=== PATIENT | female | born 2005 | race Caucasian/White ===

== ENCOUNTER 2023-01-25 06:00 | Day surgery (SDC) | payer BC, SELFPAY ==
[2023-01-18 13:25] LABS: Hematocrit 37.9 % (37-47); Hemoglobin 12.5 g/dL (12.0-15.0); Mean Corpuscular Hgb 33.2 pg (27.0-32.0); Mean Corpuscular Volume 100.8 fL (81-99); Platelet Count 255 K/mm3 (150-450); RBC Distribution Width CV 11.8 % (11.6-14.6); RBC Distribution Width SD 42.6 fl (35.1-43.9); Red Blood Count 3.76 M/mm3 (4.2-5.4); White Blood Count 3.7 K/mm3 (4.4-11.0)
[2023-01-25] VITALS (10 sets, daily range): BP systolic 82–119; BP diastolic 54–75; PULSE 65–91; RESP 12–18; TEMP 36.1–36.9; O2SAT 100; BMI 18.6
[2023-01-25] MEDS: Lactated Ringers 1,000 ML 15 ML IV (06:35)
[2023-01-25 06:46] LABS: Internal QC Validated? YES +Cl - CLEAR BKGD; Pregnancy, Urine Negative Negative
--- NOTE | 2023-01-25 07:08 | HP.PCM.OB_ITS ---
History and Physical Date of Admission: 01/25/23 HPI: 17-year-old female with imperforate hymen plan for exam under anesthesia, hymenectomy. Denies headache or vision changes, chest pain or shortness of breath, nausea or vomiting, diarrhea or constipation, fevers or chills. [employer] history: G0 Medical history: 1. History of anorexia nervosa 2. Anxiety Surgical history: 1. History of cardiac ablation for SVT in 2017 Medications: 1. Desvenlafaxine Allergies: Azithromycin Family history: Noncontributory no history of anesthesia issues Social history: Denies tobacco, alcohol, drug use Review of system: Negative otherwise stated above Physical exam: Blood pressure 119/67, heart rate 80, respiratory rate 18, temp 98.4 ?F, oxygen saturation 100% on room air General: No acute distress HEENT: Normal cephalic/atraumatic, PERRLA Cardiac: Regular rate and rhythm no murmurs rubs or gallops Respiratory: Clear to auscultation bilaterally Abdomen: Soft, nontender, nondistended Extremities: No edema Neurologic: Cranial nerves II through XII grossly intact, no focal deficits Musculoskeletal: Strength 5 out of 5 throughout all extremities Assessment/plan: 17-year-old female with imperforate hymen plan for exam under anesthesia, hymenectomy. All risk, benefits, alternatives were discussed with the patient. Risks include, but not limited to: Risk of bleeding to the point of transfusion, infection, injury to surrounding tissue including bowel/bladder/vagina, VTE, ICU admission. Patient aware and consented.
--- NOTE | 2023-01-25 07:12 | PCM.OPRPT ---
Report of Operation Date of Procedure: 01/25/23 Pre-Operative Diagnosis: Imperforate Hymen Post-Operative Diagnosis: Excess hymenal tissue Surgery/Procedure Performed:: Exam under anesthesia, Excision of hymenal remnant Description of Surgical Findings:: Normal-appearing external genitalia. 1 skin tag and mole left groin and perineal area. Large amount of hymenal tissue from the 11:00 to 6 o'clock position. Introitus approximately 1 cm in caliber. Type of Anesthesia: MAC Specimen's removed: Hymenal tissue Estimated Blood Loss (mL): 5 cc Fluids Replaced: 700 cc Description of Procedure: Indications/Risks/Benefits: 17-year-old female with imperforate hymen plan for exam under anesthesia, hymenectomy. All risk, benefits, alternatives were discussed with the patient. Risks include, but not limited to: Risk of bleeding to the point of transfusion, infection, injury to surrounding tissue including bowel/bladder/vagina, VTE, ICU admission. Patient aware and consented. Procedure: Patient taken to the operating room and placed under MAC anesthesia. Patient placed in the dorsal lithotomy position and prepped and draped in the usual sterile fashion. Findings noted as above. Red rubber catheter placed into the urethra. Excess hymenal tissue grasped with Allis clamp and excised using Metzenbaum scissors. Excision of tissue was far from urethral meatus. Vaginal tissue reapproximated using running stitch with 3-0 Vicryl. Red rubber remained in place during closure. Vaginal tissue hemostatic. UOP: 100cc clear urine Complications None
[2023-01-25] MEDS: Cefazolin 2 GM in 0.9% Normal Saline 100 ML IV (07:24)
--- NOTE | 2023-01-25 08:18 | DCINST_ITS ---
Discharge Instructions Diet Discharge Diet: No restrictions Activity Discharge Activity: Return to Normal Activity and May Shower May resume sexual activity in: 2 weeks Weight Bearing Status: Weight bearing as tolerated Lifting Restrictions: None Dressing / Incision Call your doctor if your incision/area has: Continuous Slow Oozing, Increased Pain/ Swelling, Increased Redness and Foul Smelling Discharge Call your doctor if you observe: Fever of 101 or Higher, Change in Color, Inability to urinate, Using more than 1 pad per hour, Shortness of breath, Dizziness, Swelling in the ankles, Chest pain and Calf discomfort Cleanse incision/area with: Soap & Water Follow Up Care Please Follow Up With: Marcelina Hubbard DO When: 1-2 week postoperative visit Test Results: Test results from this visit will be discussed in further detail at your follow- up appointment, if applicable. Discharge Plan Admission Primary Reason for Your Visit: Excision of hymenal remnant. Attending Provider: Marcelina Hubbard Primary Care Provider: Arnav Bolaños Discharge Orders/Prescriptions Prescriptions: No Action desvenlafaxine succinate [Pristiq] 25 mg Tablet Extended Release 24 Hr 25 mg PO QHS Referrals / Follow Up: Arnav Bolaños MD [Primary Care Provider] - Disposition Discharge Orders: Discharge Patient (Routine); Ordered 01/25/23 Ordered By: Dr. Marcelina Hubbard
== END 2023-01-25 10:43 | disposition home or self-care (01) ==
LOC: SDC 06:01 → AC 06:03
PROVIDERS: Anesthesiology; PCP Family Medicine; Referring Provider Student in an Organized Health Care Education/Training Program; Visit Provider Student in an Organized Health Care Education/Training Program
PROC: (CPT 56700; principal; 2023-01-25 07:20)
PROC: (CPT 57410; 2023-01-25 07:20)
DX: Q52.3 Imperforate hymen (principal)
CPT/HCPCS: 56700; 00940; 36415; 81025; 85027; 86850; 86900; 86901; J7120; J2405

== ENCOUNTER → 2023-05-25 | Outpatient (CLI) | payer BC, SELFPAY ==
[2023-05-25 18:46] LABS: Hepatitis B Surface Antibody Non-Reactive
== END | disposition home or self-care (01) ==
LOC: MFPLAB 16:04
PROVIDERS: PCP Family Medicine; Visit Provider Family Medicine
DX: Z00.00 Encounter for general adult medical examination without abnormal findings (principal)
CPT/HCPCS: 36415; 86706

== ENCOUNTER → 2025-10-09 | Outpatient (CLI) | payer BC, SELFPAY ==
[2025-10-09 17:41] LABS: Hematocrit 22.9 % (37-47); Hemoglobin 6.4 g/dL (12.0-15.0); Immature Granulocytes Count 0.020 X10^3/uL (0.0-0.0); Mean Corp Hgb Conc 27.9 g/dL (32-36); Mean Corpuscular Volume 77.6 fL (81-99); Mean Platelet Vol. 10.4 fl (6.2-12.0); NRBC Flagged by Analyzer 0 % (0-5); POSITIVE COUNT YES; POSITIVE MORPHOLOGY YES; Platelet Count 272 K/mm3 (150-450); RBC Distribution Width CV 15.7 % (11.6-14.6); RBC Distribution Width SD 43.8 fl (35.1-43.9); Red Blood Count 2.95 M/mm3 (4.2-5.4); White Blood Count 4.3 K/mm3 (4.4-11.0)
[2025-10-09 17:50] LABS: Differential Indicated SCAN CRITERIA MET; Immature Reticulocyte Fraction 2.70 % (3.00-15.90); Reticulocyte Count 1.71 % (0.5-1.5)
[2025-10-09 18:01] LABS: FOLATES,SERUM (FOLIC ACID) 15.50 ng/mL (4.60-34.80)
[2025-10-09 18:20] LABS: Anisocytosis 1+
[2025-10-09 18:21] LABS: Hypochromasia 2+
[2025-10-09 18:25] LABS: AST(SGOT) 14 U/L (<=31); Alanine Aminotransfer ALT/SGPT 14 U/L (<=34); Albumin, Serum 4.5 g/dL (3.5-5.0); Alkaline Phosphatase 44 U/L (35-104); Anion Gap 12 (5-15); BUN 14 mg/dL (4-19); BUN/Creat Ratio 21.3 RATIO (10-20); Calcium,Total 9.4 mg/dL (7.6-11.0); Carbon Dioxide 23.1 mmol/L (21.0-32.0); Chloride 105 mmol/L (98-108); Ferritin 6 ng/mL (22-378); Free T3 2.7 pg/mL (2.18-3.98); Globulin 2.4 g/dL (2.2-4.2); Glucose 92 mg/dL (70-99); Iron 8 ug/dL (50-170); Iron Binding Capacity,Unsat 461 ug/dL (228-428); Potassium 3.8 mmol/L (3.3-5.1); Vitamin B12 335 pg/mL (180-914); Vitamin D,25 Hydroxy 37.4 ng/mL (30-100)
[2025-10-09 18:38] LABS: Iron Binding Capacity,Total 469 ug/dL (250-450)
== END | disposition home or self-care (01) ==
LOC: MTLAB 16:39
PROVIDERS: PCP Family Medicine; Referring Provider Family Medicine; Visit Provider Family Medicine
DX: R94.6 Abnormal results of thyroid function studies (principal); R53.83 Other fatigue; D64.9 Anemia, unspecified
CPT/HCPCS: 36415; 80053; 82306; 82607; 82728; 82746; 83540; 83550; 84439; 84443; 84481; 85025; 85045; 85652

== ENCOUNTER → 2025-10-11 | Outpatient (CLI) | payer BC, SELFPAY ==
[2025-10-11 15:29] LABS: Hematocrit 25.1 % (37-47); Hemoglobin 7.3 g/dL (12.0-15.0); Immature Granulocytes Count 0.020 X10^3/uL (0.0-0.0); Mean Corp Hgb Conc 29.1 g/dL (32-36); Mean Corpuscular Volume 77.2 fL (81-99); Mean Platelet Vol. 10.1 fl (6.2-12.0); NRBC Flagged by Analyzer 0 % (0-5); Platelet Count 230 K/mm3 (150-450); RBC Distribution Width CV 15.5 % (11.6-14.6); RBC Distribution Width SD 43.3 fl (35.1-43.9); Red Blood Count 3.25 M/mm3 (4.2-5.4); White Blood Count 4.4 K/mm3 (4.4-11.0)
[2025-10-15 15:08] LABS: Immunoglobulin A 154 mg/dL (87-352)
== END | disposition home or self-care (01) ==
LOC: MTLAB 12:35
PROVIDERS: PCP Family Medicine; Referring Provider Family Medicine; Visit Provider Family Medicine
DX: D64.9 Anemia, unspecified (principal); R53.83 Other fatigue
CPT/HCPCS: 36415; 82784; 83516; 85025; 86255